=== PATIENT | female | born 1935 | race Two or more races ===

== ENCOUNTER 2017-12-27 11:10 | Outpatient (CLI) | payer OTHER ==
[~2017-12-27 11:10] MED LIST: ARICEPT10 MG; ATENOLOL25 MG; CATAFLAM50 MG PO; NAMENDA10 MG
== END 2017-12-27 11:23 | disposition home or self-care (01) ==
LOC: MAMO-SONO 11:10
DX: Z12.31 Encounter for screening mammogram for malignant neoplasm of breast (principal); Z87.898 Personal history of other specified conditions; N63.10 Unspecified lump in the right breast, unspecified quadrant; N63.20 Unspecified lump in the left breast, unspecified quadrant

== ENCOUNTER 2018-07-31 10:00 | Outpatient (CLI) | payer OTHER | END 2018-07-31 10:11 | disposition home or self-care (01) | LOC: RAD 501 10:00 | DX: M25.551 Pain in right hip (principal); M25.552 Pain in left hip ==

== ENCOUNTER 2019-11-04 11:22 | Outpatient (CLI) | payer OTHER | END 2019-11-04 12:11 | disposition home or self-care (01) | LOC: NUCLEAR 11:22 | DX: M81.0 Age-related osteoporosis without current pathological fracture (principal) ==

== ENCOUNTER 2021-01-19 22:41 | Inpatient (IN) | payer OTHER ==
[~2021-01-19] VITALS: Ht 152.4 cm; Wt 63.0 kg
[2021-01-19] MEDS ORDERED: DIALYVITE 800-1 EACH PO (22:47)
[2021-01-19] MEDS ORDERED: ECOTRIN81 MG PO (22:47)
[2021-01-19] MEDS ORDERED: ARICEPT5 MG PO (22:48)
[2021-01-19] MEDS ORDERED: MEMANTINE HCL10 MG PO (22:49)
[2021-01-19] MEDS ORDERED: NABUMETONE750 MG PO (22:49)
[2021-01-19] MEDS ORDERED: PANTOPRAZOLE SO40 MG PO (22:49)
--- NOTE | 2021-01-19 22:52 | NUR ---
SE RECIBE PACIENTE ALERTA,LLEGA EN AMBULANCIA PARAMEDICOS REFIEREN QUE PRESENTO DIFICULTADA RESPIRATORIA, Y LETARGICA. PTE, CON OXIGENO NONE REBREATHING, SE ESTIMAN S/V SATURACION DE OXIGENO POR OXIMETRIA DE PULSO 84%,PULSO 90, RESPIRACIONES 21, TEMPERATURA 98.7. SE NOTIFICA A SE UBICA EN UNIDAD CRITICO. JUAN M MC.
--- NOTE | 2021-01-19 23:07 | NUR ---
SE RECIBE PACIENTE FEMENINA DE 85 ANOS DE EDAD DESPIERTA Y ALERTA A CARGA DE PARAMEDICOS EL CUAL REFIERE PACIENTE RPESENTAR DIFICULTAD RESPIRATORIA DESDE LAS 4PM. SE UBICA PACIENTE EN CAMA #1, SE CONECTA A MONITOR CARDIACO, SATUROMETRIA LINDA Y SE COLOCADA MASCARILLA NON-REBREATHING. SE CAROLYN MUESTRAS DE [facility] ORDEN MEDICA Y SE CANALIZA EN BRAZO IZ CON ANGIO #18 POR MR YOBANY. SE CAROLYN SIGNOS VITALES. TERAPISTA RESPIRATORIO MICHELLE ABGS.
--- NOTE | 2021-01-20 | NUR ---
SE RECIBE PT ALERTA Y ORIENTADA X3 ESFERAS EN UNIDAD DE CRITICO CUBICULO 1. EN CAMA CON BARANDAS ELEVADAS Y FRENOS COLOCADOS. TIMBRE ACCESIBLE. PUPILAS REACCIONAN A LA SANTO. ASISTENCIA RESPIRATORIA POR NONREBREATHING MASK, SATURACION DE PULSO 81-85% SE OBSERVA CON DIFICULTAD RESPIRATORIA. PERSONAL DE TERAPIA RESPIRATORIA MR AUGUSTE OFRECE O2 CON BPAP, SATURACION EN PULSO 100%. CONECTADA A MONITOR CARDIACO Y SATUROMETRO DE PULSO CONTINUO. ABDOMEN BLANDO. SE COLOCA MARCELO CATETER CON TECNICAS ASEPTICAS Y ESTERILES, OUTPUT DE 50ML COLOR AMARILLO INTENSO. SE COLOCA UN PANAL NUEVO. SE OFRECE CAMBIO DE POSICION. PT TOLERA EL MOVIMIENTO. EXTREMIDADES INFERIORES CON EDEMA NIVEL 2. EXTREMIDADES SUPERIORES CON EDEMA NIVEL 2. VENOPUNCION X2 EN BRAZO DOUGLAS, AMBAS PATENTES, LIBRES DE EDEMA Y/O ERITEMA. SE ADMINISTRAN IVFLUIDS: 0.9NSS AT 40ML/HRS BAJANDO POR REGULADOR. PT TOLERA TX. SE MANTIENE BAJO OBSERVACION POR CAMBIOS EN OVIDIO.
--- NOTE | 2021-01-20 06:30 | NUR ---
SE OFRECE CAMBIO DE PANAL SUCIO Y SE REALIZA CAMBIO DE POSICION. PT TOLERA MOVIMIENTO.
--- NOTE | 2021-01-20 06:44 | NUR ---
PT RECIBE VISITA DE DR KRAUSE.
--- NOTE | 2021-01-20 07:40 | NUR ---
SE RECIBE PACIENTE ALERTA Y ORIENTADA POR CHIP EN CAMA #1 AREA DE ICU #2. SE OFRECE HETAL PARA EVALUAR CONDICION. PACIENTE CONECTADA A MONITOR CARDIACO CON SATUROMETRO. IVF'S PATENTES RECIBIENDO .9NSS A 40 MLS/HR, CON 2 AREAS DE CANALI ZACION EN BRAZO IZQ # 18 Y MANO IXQ #22 AREAS LIBRES DE EDEMA Y/O ERITEMA. MARCELO PATENTE A GRAVEDAD ORINA AMARILLO INTENSO, LA MISMA PRESENTA OLIGURIA. PACIENTE CON PBAP CON PARAMETROS EN IPAP 10/ EPAP 5/ O2 A 80 Y RR 18. BARANDAS ELEVADAS POR MARC SEGURIDAD, EN ESPERA DE ADMISION, SE MONITOREA POR CAMBIOS.
--- NOTE | 2021-01-20 08:52 | NUR ---
SE LE BECCA ASEO PERSONAL SE BANA CON HIBICLEANS.
== END 2021-01-20 16:13 | disposition expired | DRG 193 ==
LOC: ER 22:41 → ICU-2 01-20 10:24
PROVIDERS: ADMIT Internal Medicine; ATTEND Internal Medicine
PROC: 5A09457 Assistance with Respiratory Ventilation, 24-96 Consecutive Hours, Continuous Positive Airway Pressure (ICD-10-PCS; principal; 2021-01-20)
PROC: 4A033R1 Measurement of Arterial Saturation, Peripheral, Percutaneous Approach (ICD-10-PCS; 2021-01-20)
PROC: B24BZZZ Ultrasonography of Heart with Aorta (ICD-10-PCS; 2021-01-20)
DX: J18.9 Pneumonia, unspecified organism (principal); I21.02 ST elevation (STEMI) myocardial infarction involving left anterior descending coronary artery; M06.80 Other specified rheumatoid arthritis, unspecified site; M32.9 Systemic lupus erythematosus, unspecified; M35.00 Sjogren syndrome, unspecified; G30.8 Other Alzheimer's disease; F02.80 Dementia in other diseases classified elsewhere, unspecified severity, without behavioral disturbance, psychotic disturbance, mood disturbance, and anxiety; R09.02 Hypoxemia; Z66 Do not resuscitate; Z20.822 Contact with and (suspected) exposure to COVID-19; I10 Essential (primary) hypertension; R57.0 Cardiogenic shock